=== PATIENT | female | born 1965 | race African-American/Black ===

== ENCOUNTER 2017-11-05 17:40 | Inpatient (IN) | payer MEDICAID ==
[~2017-11-05] VITALS: Ht 160 cm; Wt 94.3 kg
[2017-11-05] MEDS ORDERED: NITROGLYCERIN 0.4MG TABLET SL SL PRN (18:15)
[2017-11-05] MEDS ORDERED: ASPIRIN 81MG TABLET PO ONE (18:15)
[2017-11-05 19:09] LABS: BASOPHILS % 0.5 % (0.0-2.0); EOSINOPHILS % 4.9 % (0.0-5.0); HEMATOCRIT. 37.9 % (36.0-48.0); HEMOGLOBIN. 12.9 g/dL (12.0-16.0); LYMPHOCYTES % 35.6 % (20.0-50.0); MEAN CORPUSCULAR HEMOGLOBIN 29.8 pg (28.0-32.0); MEAN CORPUSCULAR VOLUME 87.4 fL (81.0-99.0); MEAN PLATELET VOLUME 8.2 fl (7.4-10.4); MONOCYTES % 5.8 % (2.0-8.0); NEUTROPHILS % 53.2 % (40.0-76.0); PLATELET 305 x1000/uL (130-400); RED BLOOD CELL COUNT 4.33 mill/uL (4.2-5.4); RED CELL DISTRIBUTION WIDTH 13.7 % (11.6-14.6)
[2017-11-05 19:13] LABS: CHLORIDE 107 mEq/L (98-107)
[2017-11-05] MEDS ORDERED: KETOROLAC 15MG/ML VIAL IV ONE (19:45)
[2017-11-05] MEDS ORDERED: SODIUM CHLORIDE 0.9% 500 ML IV ONE (19:45)
[2017-11-06] VITALS (15 sets, daily range): BP systolic 125–167; BP diastolic 81–104
[2017-11-06] MEDS ORDERED: FLUT1AER4 IH (02:33)
[2017-11-06] MEDS ORDERED: LISI1TAB9 PO (02:33)
[2017-11-06] MEDS ORDERED: RANI-467 PO (02:33)
[2017-11-06] MEDS ORDERED: MELO-104 PO (02:33)
[2017-11-06] MEDS ORDERED: ASPI-1159 PO (02:33)
[2017-11-06] MEDS ORDERED: ATOR40TA70 PO (02:33)
[2017-11-06] MEDS ORDERED: IPRATROPIUM/ALBUTEROL 0.5-3(2.5)MG/3ML NEB HHN PRN (03:30)
[2017-11-06] MEDS ORDERED: NON FORMULARY PATIENT HOME MED EA XX SCH (03:45)
[2017-11-06] MEDS: ACETAMINOPHEN 325MG TABLET PO PRN (06:47)
[2017-11-06 08:17] LABS: BASOPHILS % 0.6 % (0.0-2.0); EOSINOPHILS % 6.4 % (0.0-5.0); HEMATOCRIT. 39.7 % (36.0-48.0); HEMOGLOBIN. 13.2 g/dL (12.0-16.0); LYMPHOCYTES % 26.9 % (20.0-50.0); MEAN CORPUSCULAR HEMOGLOBIN 29.3 pg (28.0-32.0); MEAN CORPUSCULAR VOLUME 88.2 fL (81.0-99.0); MEAN PLATELET VOLUME 8.3 fl (7.4-10.4); MONOCYTES % 6.1 % (2.0-8.0); PLATELET 297 x1000/uL (130-400); RED CELL DISTRIBUTION WIDTH 13.9 % (11.6-14.6)
[2017-11-06] MEDS: ASPIRIN 81MG TABLET PO SCH (08:20)
[2017-11-06] MEDS: LISINOPRIL 20MG TABLET PO SCH (08:20)
[2017-11-06] MEDS: HYDROCHLOROTHIAZIDE 12.5MG CAPSULE PO SCH (08:20)
[2017-11-06] MEDS: MELOXICAM 7.5MG TABLET PO SCH ×2 (08:20→17:38)
[2017-11-06] MEDS: IPRATROPIUM/ALBUTEROL 0.5-3(2.5)MG/3ML NEB HHN SCH ×3 (09:28→22:08)
[2017-11-06 09:46] LABS: CHLORIDE 109 mEq/L (98-107)
[2017-11-06] MEDS ORDERED: PNEUMOCOCCAL 23-VAL P-SAC VAC 0.5 ML IM ONE (10:00)
[2017-11-06 10:37] LABS: LDL CHOLESTEROL 111 mg/dL (5-100)
[2017-11-06 10:39] LABS: CREATINE KINASE 68 IU/L (26-192)
[2017-11-06 10:40] LABS: HDL CHOLESTEROL 42 mg/dL (40-59)
[2017-11-06 10:42] LABS: CREATINE KINASE MB FRACTION 1.1 ng/mL (0.5-3.6)
[2017-11-06] MEDS ORDERED: MORPHINE SULFATE 4 MG/ML CPJ (NOT FOR IM USE) IV PRN (13:30)
[2017-11-06] MEDS ORDERED: ONDANSETRON HCL 4MG/2ML VIAL IV PRN (13:30)
[2017-11-06] MEDS ORDERED: CLONIDINE 0.1MG TABLET PO PRN (14:15)
[2017-11-06 16:26] LABS: CREATINE KINASE 62 IU/L (26-192)
[2017-11-06 16:28] LABS: CREATINE KINASE MB FRACTION 1.1 ng/mL (0.5-3.6)
[2017-11-06] MEDS ORDERED: ALPRAZOLAM 0.25 MG TABLET PO PRN (19:30)
[2017-11-06] MEDS: AMLODIPINE 5MG TABLET PO SCH (20:26)
[2017-11-06] MEDS ORDERED: ATORVASTATIN CALCIUM 40MG TABLET PO SCH (21:00)
[2017-11-06 21:30] LABS: CREATINE KINASE 56 IU/L (26-192)
[2017-11-07] VITALS (10 sets, daily range): BP systolic 127–151; BP diastolic 69–91
[2017-11-07] MEDS: ACETAMINOPHEN 325MG TABLET PO PRN ×2 (00:11→12:31)
[2017-11-07] MEDS: IPRATROPIUM/ALBUTEROL 0.5-3(2.5)MG/3ML NEB HHN SCH ×3 (01:21→07:53)
[2017-11-07 06:20] LABS: BASOPHILS % 0.6 % (0.0-2.0); EOSINOPHILS % 5.6 % (0.0-5.0); HEMATOCRIT. 37.8 % (36.0-48.0); HEMOGLOBIN. 12.7 g/dL (12.0-16.0); LYMPHOCYTES % 37.3 % (20.0-50.0); MEAN CORPUSCULAR HEMOGLOBIN 29.5 pg (28.0-32.0); MEAN CORPUSCULAR VOLUME 87.6 fL (81.0-99.0); MEAN PLATELET VOLUME 8.3 fl (7.4-10.4); MONOCYTES % 5.7 % (2.0-8.0); NEUTROPHILS % 50.8 % (40.0-76.0); PLATELET 288 x1000/uL (130-400); RED BLOOD CELL COUNT 4.31 mill/uL (4.2-5.4); RED CELL DISTRIBUTION WIDTH 13.5 % (11.6-14.6)
[2017-11-07 06:35] LABS: CHLORIDE 107 mEq/L (98-107)
[2017-11-07] MEDS: LISINOPRIL 20MG TABLET PO SCH (08:16)
[2017-11-07] MEDS: AMLODIPINE 5MG TABLET PO SCH (08:16)
[2017-11-07] MEDS: ASPIRIN 81MG TABLET PO SCH (08:16)
[2017-11-07] MEDS: HYDROCHLOROTHIAZIDE 12.5MG CAPSULE PO SCH (08:16)
[2017-11-07] MEDS: MELOXICAM 7.5MG TABLET PO SCH (08:17)
== END 2017-11-07 16:15 | disposition home or self-care (01) | DRG 133 ==
LOC: ER 17:40 → 3WST 21:48 → EDBEDREQ 21:50 → EDBEDREQTM 21:50 → ENRESERV 11-06 00:11 → CANRESERV 11-06 00:11 → ENRESERV 11-06 00:21
PROVIDERS: ADMIT Internal Medicine; ATTEND Internal Medicine
DX: J96.00 Acute respiratory failure, unspecified whether with hypoxia or hypercapnia (principal); I11.9 Hypertensive heart disease without heart failure; J45.901 Unspecified asthma with (acute) exacerbation; R07.89 Other chest pain; E66.9 Obesity, unspecified; E78.5 Hyperlipidemia, unspecified; G47.33 Obstructive sleep apnea (adult) (pediatric); I35.1 Nonrheumatic aortic (valve) insufficiency; M19.90 Unspecified osteoarthritis, unspecified site; R94.31 Abnormal electrocardiogram [ECG] [EKG]; F41.9 Anxiety disorder, unspecified; Z79.899 Other long term (current) drug therapy; Z68.36 Body mass index [BMI] 36.0-36.9, adult; M94.0 Chondrocostal junction syndrome [Tietze]
CPT/HCPCS: 36415; 71045; 80048; 80053; 80061; 82550; 82553; 84484; 85025; 90732; 93005; 93306; 93970; 96361; 96374; 99285; J1885; J2405; J7030; J7040; J7620

== ENCOUNTER 2017-12-24 13:06 | Day surgery (SDC) | payer MEDICAID ==
[~2017-12-24] VITALS: Ht 160 cm; Wt 95.3 kg
[~2017-12-24 13:06] MED LIST: ASPI-1159 PO; ATOR40TA70 PO; FLUT1AER4 IH; HEPARIN SODIUM 1,000 UNIT/1ML VIAL IV ONE; LISI1TAB9 PO; MELO-104 PO; NITROGLYCERIN 50MCG/ML 10ML VIAL (CATH LAB) IV ONE; PHENYLEPHRINE 100MCG/ML 10ML VIAL (CATH LAB) IV ONE; RANI-467 PO
[2017-12-24] MEDS ORDERED: GABA-531 MT (14:00)
[2017-12-24] MEDS ORDERED: FLUT1BLS IH (14:00)
[2017-12-24] MEDS ORDERED: MONT10TA21 MT (14:00)
[2017-12-24] MEDS ORDERED: LIDOCAINE HCL/PF 1% 10 MG/ML 5ML VIAL ONE (14:40)
[2017-12-24] MEDS ORDERED: IOHEXOL-300 100 ML BOTTLE ONE (14:40)
[2017-12-24] MEDS ORDERED: MIDAZOLAM HCL 2 MG/2 ML VIAL ONE (14:52)
[2017-12-24] MEDS ORDERED: FENTANYL CITRATE/PF 50MCG/ML 2ML VIAL ONE (14:53)
[2017-12-24] MEDS ORDERED: ACETAMINOPHEN 325MG TABLET PO PRN (15:30)
[2017-12-24] MEDS ORDERED: ONDANSETRON HCL 4MG/2ML VIAL IV PRN (15:30)
== END 2017-12-24 17:30 | disposition home or self-care (01) ==
LOC: CCL 13:06
PROVIDERS: ATTEND Specialist
DX: I25.10 Atherosclerotic heart disease of native coronary artery without angina pectoris (principal); I34.0 Nonrheumatic mitral (valve) insufficiency; F41.9 Anxiety disorder, unspecified; E66.9 Obesity, unspecified; E78.5 Hyperlipidemia, unspecified; I10 Essential (primary) hypertension; G47.33 Obstructive sleep apnea (adult) (pediatric); M19.90 Unspecified osteoarthritis, unspecified site; J45.909 Unspecified asthma, uncomplicated; Z98.890 Other specified postprocedural states; Z79.899 Other long term (current) drug therapy; Z68.36 Body mass index [BMI] 36.0-36.9, adult; Z79.82 Long term (current) use of aspirin
CPT/HCPCS: 93458; 99152; C1769; C1893; J1644; J2250; J2370; J3010; J3490; Q9967

== ENCOUNTER 2018-11-26 21:04 | Emergency (ER) | payer MEDICAID ==
[~2018-11-26] VITALS: Ht 160 cm; Wt 92.0 kg
[~2018-11-26 21:04] MED LIST changes: -ASPI-1159 PO; +ASPI-1393 PO; +FLUT1BLS IH; +GABA-531 MT; -HEPARIN SODIUM 1,000 UNIT/1ML VIAL IV ONE; +MONT10TA21 MT; -NITROGLYCERIN 50MCG/ML 10ML VIAL (CATH LAB) IV ONE; -PHENYLEPHRINE 100MCG/ML 10ML VIAL (CATH LAB) IV ONE; -RANI-467 PO; +RANI-633 PO
[2018-11-26] MEDS ORDERED: KETOROLAC 60MG/2ML VIAL IM ONE (23:30)
[2018-11-27 00:49] VITALS: BP 141/81
== END 2018-11-27 00:50 | disposition home or self-care (01) ==
LOC: ER 21:04
DX: S30.0XXA Contusion of lower back and pelvis, initial encounter (principal); W00.0XXA Fall on same level due to ice and snow, initial encounter; Y93.89 Activity, other specified; Y92.89 Other specified places as the place of occurrence of the external cause
CPT/HCPCS: 72220; 96372; 99283; J1885

== ENCOUNTER 2019-08-04 21:34 | Emergency (ER) | payer MEDICAID ==
[~2019-08-04] VITALS: Ht 162.6 cm; Wt 96.4 kg
[~2019-08-04 21:34] MED LIST changes: -ASPI-1393 PO; +ASPI-1497 PO; -RANI-633 PO; +RANI-645 PO
[2019-08-05] MEDS ORDERED: PREDNISONE 20MG TABLET PO STA (01:03)
[2019-08-05] MEDS ORDERED: ALBUTEROL (0.083%) 2.5MG/3ML NEB HHN STA (01:03)
[2019-08-05] MEDS ORDERED: IPRATROPIUM BROMIDE (0.02%) 0.5MG/2.5ML NEB HHN STA (01:03)
[2019-08-05 01:14] LABS: BASOPHILS % 1.1 % (0.0-2.0); EOSINOPHILS % 3.8 % (0.0-5.0); HEMATOCRIT. 38.7 % (36.0-48.0); HEMOGLOBIN. 13.4 g/dL (12.0-16.0); LYMPHOCYTES % 28.7 % (20.0-50.0); MEAN CORPUSCULAR HEMOGLOBIN 30.8 pg (28.0-32.0); MEAN CORPUSCULAR VOLUME 89.3 fL (81.0-99.0); MEAN PLATELET VOLUME 8.6 fl (7.4-10.4); MONOCYTES % 5.4 % (2.0-8.0); PLATELET 293 x1000/uL (130-400); RED BLOOD CELL COUNT 4.33 mill/uL (4.2-5.4); RED CELL DISTRIBUTION WIDTH 12.9 % (11.6-14.6)
[2019-08-05] MEDS ORDERED: MAGNESIUM 2 G PREMIX 50 ML IV ONE (01:15)
[2019-08-05 01:26] LABS: CHLORIDE 110 mEq/L (98-107)
[2019-08-05] MEDS ORDERED: KETOROLAC 30MG/ML VIAL IV SCH (03:45)
[2019-08-05 04:29] VITALS: BP 116/72
== END 2019-08-05 04:29 | disposition home or self-care (01) ==
LOC: ER 21:34
DX: J45.901 Unspecified asthma with (acute) exacerbation (principal); R07.89 Other chest pain; I10 Essential (primary) hypertension; Z90.49 Acquired absence of other specified parts of digestive tract; Z98.51 Tubal ligation status; Z98.890 Other specified postprocedural states; Z79.82 Long term (current) use of aspirin; Z79.899 Other long term (current) drug therapy
CPT/HCPCS: 36415; 71045; 80053; 83880; 84484; 85025; 93005; 94640; 96365; 96375; 99285; J1885; J3475; J7512; Z7610

== ENCOUNTER 2019-10-03 22:59 | Inpatient (IN) | payer MEDICAID ==
[~2019-10-03] VITALS: Ht 160 cm; Wt 95.3 kg
[2019-10-03] MEDS ORDERED: SODIUM CHLORIDE 0.9% 1,000 ML IV ONE (23:33)
[2019-10-04 00:08] LABS: BASOPHILS % 0.5 % (0.0-2.0); EOSINOPHILS % 3.9 % (0.0-5.0); HEMATOCRIT. 36.9 % (36.0-48.0); LYMPHOCYTES % 29.9 % (20.0-50.0); MEAN CORPUSCULAR VOLUME 87.9 fL (81.0-99.0); MEAN PLATELET VOLUME 8.3 fl (7.4-10.4); MONOCYTES % 6.3 % (2.0-8.0); NEUTROPHILS % 59.4 % (40.0-76.0); PLATELET 278 x1000/uL (130-400); RED CELL DISTRIBUTION WIDTH 12.9 % (11.6-14.6)
[2019-10-04 00:09] LABS: CHLORIDE 107 mEq/L (98-107)
[2019-10-04 00:13] LABS: INR 0.9; PROTHROMBIN TIME 10.3 sec (9.6-11.0)
[2019-10-04 00:44] LABS: CLARITY URINE CLEAR (CLEAR); COLOR URINE YELLOW (YELLOW); KETONES URINE TRACE (NEGATIVE); LEUKOCYTE ESTERASE URINE 2+ (NEGATIVE); NITRITE URINE NEGATIVE (NEGATIVE); OCCULT BLOOD URINE NEGATIVE (NEGATIVE); PH URINE 5.5 (4.5-8.0); PROTEIN URINE NEGATIVE (NEGATIVE); SPECIFIC GRAVITY URINE 1.021 (1.005-1.030)
[2019-10-04] MEDS ORDERED: KETOROLAC 30MG/ML VIAL IV ONE (01:15)
[2019-10-04] MEDS ORDERED: CEFTRIAXONE 1 G PREMIX 50 ML IV SCH (01:30)
[2019-10-04] MEDS: AMLODIPINE 5MG TABLET PO SCH ×2 (10:28→21:00)
[2019-10-04] MEDS ORDERED: ONDANSETRON HCL 4MG/2ML INJ IV PRN (11:15)
[2019-10-04] MEDS ORDERED: DOCUSATE SODIUM 100MG CAPSULE PO PRN (11:15)
[2019-10-04] MEDS ORDERED: CLONIDINE 0.1MG TABLET PO PRN (11:15)
[2019-10-04] MEDS: SODIUM CHLORIDE 0.9% 1,000 ML IV SCH ×2 (11:26→23:43)
[2019-10-04] MEDS: ENOXAPARIN 40MG/0.4ML SYR SUBCUT SCH (11:27)
[2019-10-04 11:33] LABS: ETHANOL BLOOD < 10 mg/dL
[2019-10-04 14:53] LABS: CREATINE KINASE 78 IU/L (26-192)
[2019-10-04 14:55] LABS: CREATINE KINASE MB FRACTION 1.1 ng/mL (0.5-3.6)
[2019-10-04] MEDS ORDERED: DEXTROSE 50% WATER 50ML SYRINGE IV PRN (18:30)
[2019-10-04] MEDS: ACETAMINOPHEN 325MG TABLET PO PRN (20:15)
[2019-10-04 20:26] LABS: *AMPHETAMINES SCREEN URINE NEGATIVE (NEGATIVE); *BARBITURATES SCREEN URINE NEGATIVE (NEGATIVE)
[2019-10-04 20:27] LABS: *BENZODIAZEPINES SCREEN URINE NEGATIVE (NEGATIVE); *COCAINE SCREEN URINE NEGATIVE (NEGATIVE); CANNABINOID URINE SCREEN NEGATIVE (NEGATIVE); METHADONE URINE SCREEN NEGATIVE (NEGATIVE); OPIATES URINE SCREEN NEGATIVE (NEGATIVE); PHENCYCLIDINE URINE SCREEN NEGATIVE (NEGATIVE)
[2019-10-04] MEDS: INSULIN LISPRO 100 UNITS/ML SUBCUT SCH (21:00)
[2019-10-04] MEDS: BLOOD SUGAR DIAGNOSTIC STRIP TEST SCH (21:00)
[2019-10-04 22:30] VITALS: BP 137/71
[2019-10-04 23:39] LABS: CREATINE KINASE 84 IU/L (26-192)
[2019-10-04 23:40] LABS: CREATINE KINASE MB FRACTION 1.5 ng/mL (0.5-3.6)
[2019-10-05] VITALS (9 sets, daily range): BP systolic 135–181; BP diastolic 71–99
[2019-10-05] MEDS ORDERED: OMEP20CA14 PO (04:12)
[2019-10-05] MEDS ORDERED: FLUT1BLS9 IH (04:12)
[2019-10-05] MEDS ORDERED: LABE100T5 PO (04:12)
[2019-10-05] MEDS ORDERED: GABA-529 PO (04:12)
[2019-10-05] MEDS ORDERED: LORA10TA7 PO (04:12)
[2019-10-05] MEDS: BLOOD SUGAR DIAGNOSTIC STRIP TEST SCH ×3 (06:21→16:51)
[2019-10-05 07:08] LABS: BASOPHILS % 0.6 % (0.0-2.0); EOSINOPHILS % 5.8 % (0.0-5.0); HEMATOCRIT. 37.6 % (36.0-48.0); LYMPHOCYTES % 30.6 % (20.0-50.0); MEAN CORPUSCULAR HEMOGLOBIN 30.6 pg (28.0-32.0); MEAN CORPUSCULAR VOLUME 88.6 fL (81.0-99.0); MEAN PLATELET VOLUME 8.3 fl (7.4-10.4); MONOCYTES % 6.9 % (2.0-8.0); NEUTROPHILS % 56.1 % (40.0-76.0); PLATELET 266 x1000/uL (130-400); RED BLOOD CELL COUNT 4.25 mill/uL (4.2-5.4); RED CELL DISTRIBUTION WIDTH 12.9 % (11.6-14.6)
[2019-10-05 07:09] LABS: CHLORIDE 110 mEq/L (98-107)
[2019-10-05] MEDS: INSULIN LISPRO 100 UNITS/ML SUBCUT SCH ×3 (07:50→16:51)
[2019-10-05] MEDS: AMLODIPINE 5MG TABLET PO SCH (08:08)
[2019-10-05] MEDS: ENOXAPARIN 40MG/0.4ML SYR SUBCUT SCH (08:08)
[2019-10-05] MEDS: ACETAMINOPHEN 325MG TABLET PO PRN (08:17)
[2019-10-05] MEDS ORDERED: CEFTRIAXONE 1 G PREMIX 50 ML IV SCH ×2 (09:00)
[2019-10-05] MEDS: SODIUM CHLORIDE 0.9% 1,000 ML IV SCH (12:22)
[2019-10-05] MEDS ORDERED: ACETAMINOPHEN 325MG TABLET PO PRN ×2 (13:45→15:15)
[2019-10-05] MEDS ORDERED: HYDROCODONE/ACETAMINOPHEN 5/325MG TABLET PO NR (16:30)
== END 2019-10-05 21:00 | disposition home or self-care (01) | DRG 48 ==
LOC: ER 22:59 → ENRESERV 10-04 20:36 → 6WST 10-04 22:27
PROVIDERS: ADMIT Internal Medicine; ATTEND Internal Medicine
DX: G90.8 Other disorders of autonomic nervous system (principal); E11.9 Type 2 diabetes mellitus without complications; N39.0 Urinary tract infection, site not specified; I16.0 Hypertensive urgency; E78.00 Pure hypercholesterolemia, unspecified; E78.5 Hyperlipidemia, unspecified; E87.6 Hypokalemia; I10 Essential (primary) hypertension; J45.909 Unspecified asthma, uncomplicated; M17.0 Bilateral primary osteoarthritis of knee; Z96.659 Presence of unspecified artificial knee joint; Z79.82 Long term (current) use of aspirin; Z79.899 Other long term (current) drug therapy; Z90.49 Acquired absence of other specified parts of digestive tract
CPT/HCPCS: 36415; 70544; 70553; 71045; 80048; 80053; 80305; 80320; 81003; 82550; 82553; 82962; 83036; 83880; 84443; 84484; 85025; 93005; 93306; 93880; 97162; 97166; 99285; J0696; J1650; J1885; J7030; G0480

== ENCOUNTER 2020-11-18 13:51 | Emergency (ER) | payer MEDICAID ==
[~2020-11-18] VITALS: Ht 160 cm; Wt 98.0 kg
[~2020-11-18 13:51] MED LIST changes: -FLUT1AER4 IH; -FLUT1BLS IH; +FLUT1BLS9 IH; +GABA-529 PO; -GABA-531 MT; +GABA-532 MT; +LABE100T5 PO; +LORA10TA7 PO; +OMEP20CA14 PO; -RANI-645 PO
[2020-11-18 14:09] VITALS: BP 177/96
[2020-11-18] MEDS ORDERED: PREDNISONE 20MG TABLET PO STA (16:14)
[2020-11-18] MEDS ORDERED: IPRATROPIUM BROMIDE (0.02%) 0.5MG/2.5ML NEB HHN STA (16:14)
[2020-11-18] MEDS ORDERED: ALBUTEROL (0.083%) 2.5MG/3ML NEB HHN STA (16:14)
[2020-11-18 17:29] LABS: BASOPHILS % 0.8 % (0.0-2.0); EOSINOPHILS % 6.8 % (0.0-5.0); HEMATOCRIT. 34.6 % (36.0-48.0); HEMOGLOBIN. 12.2 g/dL (12.0-16.0); MEAN CORPUSCULAR HEMOGLOBIN 30.3 pg (28.0-32.0); MEAN CORPUSCULAR VOLUME 85.9 fL (81.0-99.0); MEAN PLATELET VOLUME 8.1 fl (7.4-10.4); MONOCYTES % 6.3 % (2.0-8.0); NEUTROPHILS % 53.1 % (40.0-76.0); PLATELET 280 x1000/uL (130-400); RED BLOOD CELL COUNT 4.03 mill/uL (4.2-5.4); RED CELL DISTRIBUTION WIDTH 13.8 % (11.6-14.6)
[2020-11-18 17:36] LABS: CHLORIDE 105 mEq/L (98-107)
[2020-11-18] MEDS ORDERED: ACETAMINOPHEN 325MG TABLET PO ONE (18:45)
[2020-11-18] MEDS ORDERED: ASPIRIN 325MG EC TABLET PO ONE (18:45)
[2020-11-18] MEDS ORDERED: KETOROLAC 60MG/2ML VIAL IM ONE (18:45)
[2020-11-18] MEDS ORDERED: P50 MT (20:29)
== END 2020-11-18 20:30 | disposition home or self-care (01) ==
LOC: ER 13:51
DX: R07.89 Other chest pain (principal); J45.901 Unspecified asthma with (acute) exacerbation; I10 Essential (primary) hypertension; Z98.51 Tubal ligation status; Z90.49 Acquired absence of other specified parts of digestive tract; Z79.899 Other long term (current) drug therapy
CPT/HCPCS: 36415; 71045; 80053; 83880; 84484; 85025; 93005; 94640; 96372; 99285; J1885; J7512; Z7610